=== PATIENT | female | born 1965 | race Caucasian/White ===

== ENCOUNTER 2017-08-23 16:51 | Emergency (ER) | payer SELFPAY ==
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
[2017-08-23] MEDS ORDERED: IBUPROFEN 600 MG TABLET PO ONE (18:43)
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
== END 2017-08-23 18:57 | disposition home or self-care (01) ==
LOC: ER 16:51
DX: S16.1XXA Strain of muscle, fascia and tendon at neck level, initial encounter (principal); M79.662 Pain in left lower leg; I10 Essential (primary) hypertension; V40.0XXA Car driver injured in collision with pedestrian or animal in nontraffic accident, initial encounter
CPT/HCPCS: 72050; 99283